=== PATIENT | male | born 1990 | race Caucasian/White ===

== ENCOUNTER 2018-09-06 10:02 | Emergency (ER) | payer OTHER ==
[2018-09-06 12:47] LABS: BASOPHILS # (AUTO) 0.1 10^3/uL (0.0-0.1); BASOPHILS % (AUTO) 0.6 %; EOSINOPHILS # (AUTO) 0.1 10^3/uL (0.0-0.7); EOSINOPHILS % (AUTO) 1.7 %; HGB - HEMOGLOBIN 18.6 g/dL (14.0-18.0); LYMPHOCYTES # (AUTO) 1.9 10^3/uL (1.5-3.5); MEAN CORPUSCULAR HEMOGLOBIN 31.2 pg (27.0-31.0); MEAN CORPUSCULAR HGB CONC 34.6 g/dL (32.0-36.0); MEAN CORPUSCULAR VOLUME 90.1 fL (80.0-94.0); MEAN PLATELET VOLUME 8.6 fL (7.4-11.4); MONOCYTES # (AUTO) 0.5 10^3/uL (0.0-1.0); MONOCYTES % (AUTO) 5.5 %; NEUTROPHILS # (AUTO) 6.2 10^3/uL (1.5-6.6); NEUTROPHILS % (AUTO) 70.2 %; PLT - PLATELET COUNT 244 10^3/uL (130-450); RED BLOOD COUNT 5.97 10^6/uL (4.70-6.10); RED CELL DISTRIBUTION WIDTH 12.9 % (12.0-15.0); WHITE BLOOD COUNT 8.8 x10^3/uL (4.8-10.8)
[2018-09-06 12:50] VITALS: BP 97/66
--- NOTE | 2018-09-06 12:50 | ED Physician Documentation ---
PD HPI HEADACHE - Stated complaint Stated Complaint: HEADACHE X'S 2 WEEKS - Chief complaint Chief Complaint: Neuro - History obtained from History obtained from: Patient - History of Present Illness Timing - duration: Hours (2) Timing - details: Gradual onset Pain level max: 10 Pain level now: 0 Location: Right Quality: Throbbing, Aching Associated symptoms: Eye pain (States his right eye hurts when these occur). No: Fever, Stiff neck, Nausea, Vomiting, Weakness, Numbness, Syncope, Seizure, Vision changes Improved by: Rest, Dark room Worsened by: Light, Noise Contributing factors: Hypertension, Recent illness. No: Anticoagulated, Possible carbon monoxide, Trauma Similar symptoms before: Has not had sx before Recently seen: Not recently seen - Additional information Additional information: 27-year-old male presents to the emergency department stating that he has been having headaches for the past 2 weeks. States they are always in the same spot, on the right orthodox. States it started after having a recent upper respiratory infection. He states that normally lasts for about 2 hours and resolves with Excedrin. Usually occurs either in the mornings or evenings. He does have a history of high blood pressure but is not on any medications. Has not had any trauma. No fevers. Currently asymptomatic Review of Systems Ten Systems: 10 systems reviewed and negative Constitutional: denies: Fever, Chills Ears: denies: Ear pain Nose: denies: Rhinorrhea / runny nose Throat: denies: Sore throat Cardiac: denies: Chest pain / pressure, Palpitations Respiratory: denies: Cough GI: denies: Vomiting : denies: Dysuria Skin: denies: Rash Musculoskeletal: denies: Neck pain, Back pain Neurologic: denies: Focal weakness, Numbness, Headache PD PAST MEDICAL HISTORY - Past Medical History Past Medical History: Yes Cardiovascular: Hypertension - Past Surgical History Past Surgical History: No - Present Medications Home Medications: Ambulatory Orders Medication Instructions Recorded Confirmed Lisinopril 5 mg PO DAILY #14 tablet 09/06/18 - Allergies Allergies/Adverse Reactions: Allergies Allergy/AdvReac Type Severity Reaction Status Date / Time No Known Drug Allergies Allergy Verified 09/06/18 10:14 - Living Situation Living Arrangement: reports: At home - Social History Does the pt smoke?: No Does the pt have substance abuse?: No - Family History Family history: reports: Non contributory PD ED PE NORMAL - Vitals Vital signs reviewed: Yes - General General: Alert and oriented X 3, Well developed/nourished - HEENT HEENT: Atraumatic, PERRL, Ears normal, Moist mucous membranes, Pharynx benign - Neck Neck: Supple, no meningeal sign - Cardiac Cardiac: RRR, Strong equal pulses - Respiratory Respiratory: No respiratory distress, Clear bilaterally - Abdomen Abdomen: Soft, Non tender, Non distended - Back Back: No CVA TTP, No spinal TTP - Derm Derm: Warm and dry, No rash - Extremities Extremities: No edema - Neuro Neuro: Alert and oriented X 3, platform architect 2-12 intact, No motor deficit, No sensory deficit, Normal speech Eye Opening: Spontaneous Motor: Obeys Commands Verbal: Oriented GCS Score: 15 - Psych Psych: Normal mood, Normal affect Results - Vitals Vitals: Vital Signs - 24 hr 09/06/18 09/06/18 10:12 12:48 Temperature 36.5 C 36.3 C L Heart Rate 62 60 Respiratory 18 15 Rate Blood Pressure 190/114 H 97/66 O2 Saturation 100 100 Oxygen O2 Source Room air - Labs Labs: Laboratory Tests 09/06/18 09/06/18 12:26 12:26 WBC 8.8 RBC 5.97 Hgb 18.6 H Hct 53.8 H MCV 90.1 MCH 31.2 H MCHC 34.6 RDW 12.9 Plt Count 244 MPV 8.6 Neut # (Auto) 6.2 Lymph # (Auto) 1.9 [place] # (Auto) 0.5 Eos # (Auto) 0.1 Baso # (Auto) 0.1 Absolute Nucleated RBC 0.00 Nucleated RBC % 0.0 Sodium 139 Potassium 4.1 Chloride 105 Carbon Dioxide 28 Anion Gap 6.0 BUN 19 Creatinine 1.0 Estimated GFR (MDRD) 88 L Glucose 90 Calcium 9.1 Total Bilirubin 0.8 AST 38 ALT 65 H Alkaline Phosphatase 58 Total Protein 8.0 Albumin 4.5 Globulin 3.5 Albumin/Globulin Ratio 1.3 Lipase 31 - Rads (name of study) Head CT Radiology: Prelim report reviewed, EMP read contemporaneously, See rad report (No acute intracranial abnormality) PD MEDICAL DECISION MAKING - ED course Complexity details: reviewed results, re-evaluated patient, considered differential, d/w patient ED course: 27-year-old male with hypertension and recurrent headaches. No acute intracranial abnormalities on CT. Normal neurological exam. We will start him on lisinopril. Does have some polycythemia, possible this is related to his headaches? Will have him follow-up with his doctor for further evaluation and care. May benefit from an MRI as well. Patient counseled regarding signs and symptoms for which I believe and urgent re-evaluation would be necessary. Patient with good understanding of and agreement to plan and is comfortable going home at this time This document was made in part using voice recognition software. While efforts are made to proofread this document, sound alike and grammatical errors may occur. I was not informed of the patient's charted discharge blood pressure, the nurse is not available to ask if this was accurate or an error. Asked the nurses to call the patient and check on him. Departure - Departure Disposition: 01 Home, Self Care Clinical Impression: Headache Qualifiers: Headache type: unspecified Headache chronicity pattern: acute headache Intractability: not intractable Qualified Code(s): R51 - Headache Hypertension Qualifiers: Hypertension type: unspecified Qualified Code(s): I10 - Essential (primary) hypertension Condition: Good Instructions: ED Cephalgia Unspecified, ED HTN Established Follow-Up: ERIC MARTIN [Primary Care Provider] - Within 3 Days Prescriptions: Lisinopril 5 mg PO DAILY #14 tablet Comments: Your laboratory testing and head CT did not show any acute abnormalities today. Return if you worsen. Follow-up with your doctor for further evaluation and care. Discharge Date/Time: 09/06/18 13:32
[2018-09-06 12:58] LABS: ALBUMIN 4.5 g/dL (3.2-5.5); ALBUMIN/GLOBULIN RATIO 1.3 (1.0-2.2); BILIRUBIN,TOTAL 0.8 mg/dL (0.2-1.0); CALCIUM 9.1 mg/dL (8.5-10.3)
--- NOTE | 2018-09-06 13:12 | CT Report ---
Reason: new onset headaches Procedure Date: 09/06/2018 Accession Number: [id number] / [id number] Procedure: CT - Head W/O CPT Code: FULL RESULT: EXAM: CT HEAD EXAM DATE: 09/06/2018 12:58 PM. CLINICAL HISTORY: New onset headaches. COMPARISON: None. TECHNIQUE: Multiaxial CT images were obtained from the foramen magnum to the vertex. Reformats: Sagittal and coronal. IV contrast: None. In accordance with CT protocol optimization, one or more of the following dose reduction techniques were utilized for this exam: automated exposure control, adjustment of mA and/or KV based on patient size, or use of iterative reconstructive technique. FINDINGS: Parenchyma: No intraparenchymal hemorrhage. No evidence of mass, midline shift, or CT findings of infarction. Herrera-white differentiation is distinct. Extraaxial Spaces: Normal for age. No subdural or epidural collections identified. Ventricles: Normal in size and position. Sinuses and Orbits: Imaged paranasal sinuses, orbits, and mastoids show no significant abnormality. Bones: No evidence of fracture or calvarial defect. Other: None. IMPRESSION: Normal head CT. [facility]
== END 2018-09-06 13:32 | disposition home or self-care (01) ==
LOC: ED 10:02
DX: R51 Headache (principal); I10 Essential (primary) hypertension
CPT/HCPCS: 36415; 70450; 80053; 83690; 85025; 99283